=== PATIENT | female | born 1955 | race Caucasian/White ===

== ENCOUNTER 2019-05-06 15:23 | Outpatient (CLI) | payer MEDICARE ==
--- NOTE | 2019-05-07 15:12 | XRAY Report ---
Reason: PAIN IN RIGHT KNEE Procedure Date: 05/06/2019 Accession Number: [id number] / [id number] Procedure: XR - Knee 3 View RT CPT Code: Final Report FULL RESULT: EXAM: RIGHT KNEE RADIOGRAPHY EXAM DATE: 05/06/2019 03:44 PM. CLINICAL HISTORY: PAIN IN RIGHT KNEE. COMPARISON: None. TECHNIQUE: 3 views. FINDINGS: Bones: Normal. No fractures or bone lesions. Joints: Normal. No effusion. No subluxations. Soft Tissues: Normal. No soft tissue swelling. IMPRESSION: Normal right knee radiography. [facility]
--- NOTE | 2019-05-07 15:12 | XRAY Report ---
Reason: PAIN IN RIGHT KNEE AND LEG Procedure Date: 05/06/2019 Accession Number: [id number] / [id number] Procedure: XR - Tib/Fib RT CPT Code: Final Report FULL RESULT: EXAM: RIGHT TIBIA/FIBULA RADIOGRAPHY EXAM DATE: 05/06/2019 03:56 PM. CLINICAL HISTORY: PAIN IN RIGHT KNEE AND LEG. COMPARISON: KNEE 3 VIEW RT 05/06/2019 3:44 PM. TECHNIQUE: 2 views. FINDINGS: Bones: Normal. No fracture or bone lesion. Joints: The visualized knee and ankle joints are normal. No effusions. Soft Tissues: Normal. No soft tissue swelling. IMPRESSION: Normal right tibia/fibula radiography. [facility]
== END 2019-05-06 15:24 | disposition home or self-care (01) ==
LOC: DI 15:23
PROVIDERS: ATTEND Physician Assistant
DX: M25.561 Pain in right knee (principal); M79.604 Pain in right leg

== ENCOUNTER 2019-05-16 14:54 | Outpatient (CLI) | payer MEDICARE ==
--- NOTE | 2019-05-16 16:22 | Ultrasound Report ---
Reason: VAGINAL DISCHARGE Procedure Date: 05/16/2019 Accession Number: [id number] / [id number] Procedure: US - Pelvic w/Transvaginal CPT Code: Final Report FULL RESULT: EXAM: PELVIC ULTRASOUND EXAM DATE: 05/16/2019 03:45 PM. CLINICAL HISTORY: Vaginal discharge, postmenopausal. COMPARISON: None. TECHNIQUE: Realtime transabdominal pelvic scan performed to identify the uterus and adnexa and as an overview of other pelvic structures, followed by transvaginal scan to provide greater detail of the uterus and adnexa, with static image documentation. FINDINGS: Uterus: 5.9 x 2.2 x 3.2 cm, volume 22 cc. Anteverted position. Normal overall size and echotexture. Masses: None. Endometrium: 3 mm. Simple fluid present in the fundal measuring 2 mm in thickness. There is a cluster of calcifications about the lower uterine segment endometrium. No solid masses or hypervascularity evident Cervix: Unremarkable. Right Ovary: 1.5 x 1.5 x 2.3 cm, volume 2.8 cc. Normal echotexture and blood flow. Left Ovary: 1.5 x 1.1 x 2.2 cm, volume 1.9 cc. Normal echotexture and blood flow. Free Fluid: None. Other: None. IMPRESSION: 1. Moderate simple fluid in endometrial canal. 2. Endometrial versus subendometrial calcifications lower uterine segment of doubtful significance but possibly secondary to prior surgery, trauma or inflammatory process. 3. No endometrial mass or thickening evident. [facility]
== END 2019-05-16 14:55 | disposition home or self-care (01) ==
LOC: DI 14:54
PROVIDERS: ATTEND Physician Assistant
DX: N95.0 Postmenopausal bleeding (principal)
CPT/HCPCS: 76830; 76856

== ENCOUNTER 2019-08-21 10:40 | Outpatient (CLI) | payer MEDICARE ==
--- NOTE | 2019-08-21 11:34 | DEXA Report ---
Reason: SCREENING FOR OSTEOPOROSIS Procedure Date: 08/21/2019 Accession Number: [id number] / [id number] Procedure: DEX - Dexa Spine and/or Hip CPT Code: Final Report FULL RESULT: PROCEDURE: Dexa Spine and/or Hip INDICATIONS: SCREENING FOR OSTEOPOROSIS TECHNIQUE: Dual energy x-ray absorptiometry (DXA) was performed on a [employer] System. Regions measured are the AP Spine, femoral neck, and if needed forearm. COMPARISON: None. FINDINGS: Lumbar Spine: Bone Mineral Density 1.027 g/cm/cm,T score -1.3, Left Femoral Neck: Bone Mineral Density 0.937 g/cm/cm, T score -0.6, (T score greater or equal to -1.0: NORMAL) (T score from -1.1 to -2.4: OSTEOPENIA) (T score less than or equal to -2.5 to: OSTEOPOROSIS) Impression: Osteopenia Patients with diagnosis of osteoporosis or osteopenia should have regular bone mineral density assessment. For those eligible for Medicare, routine testing is allowed once every 2 years. Testing frequency can be increased for patients who have rapidly progressing disease or for those who are receiving medical therapy to restore bone mass. Reviewed by: Carroll Thompson MD on 08/21/2019 11:33 AM PDT Approved by: Carroll Thompson MD on 08/21/2019 11:33 AM PDT Station ID: [id number]
== END 2019-08-21 10:41 | disposition home or self-care (01) ==
LOC: DI 10:40
PROVIDERS: ATTEND Physician Assistant
DX: Z13.820 Encounter for screening for osteoporosis (principal); M85.88 Other specified disorders of bone density and structure, other site
CPT/HCPCS: 77080

== ENCOUNTER 2020-01-17 10:40 | Outpatient (CLI) | payer MEDICARE ==
--- NOTE | 2020-01-17 16:15 | XRAY Report ---
PROCEDURE: Shoulder 3 View RT INDICATIONS: PAIN OF RIGHT SHOULDER JOINT TECHNIQUE: 3 views of the shoulder were acquired. COMPARISON: None. FINDINGS: Bones: No fractures or dislocations. No suspicious bony lesions. Visualized ribs appear intact. M oderate acromioclavicular degenerative narrowing. Humeral head is mildly high riding. Soft tissues: No suspicious soft tissue calcifications. IMPRESSION: 1. High riding humeral head which can be seen with rotator cuff pathology. 2. Moderate acromioclavicular degenerative narrowing. Reviewed by: Esther Kumar MD on 01/17/2020 4:14 PM PST Approved by: Esther Kumar MD on 01/17/2020 4:14 PM PST Station ID: [id number]
== END 2020-01-17 10:41 | disposition home or self-care (01) ==
LOC: DI.S 10:40
PROVIDERS: ATTEND Physician Assistant
DX: M19.011 Primary osteoarthritis, right shoulder (principal)

== ENCOUNTER 2021-06-08 08:00 | Outpatient (CLI) | payer MEDICARE ==
[2021-06-08 21:38] LABS: BACTERIAL VAGINOSIS DNA NEGATIVE (NEGATIVE)
[2021-06-08 21:39] LABS: CANDIDA GLABRATA DNA NEGATIVE (NEGATIVE); CANDIDA GROUP DNA NEGATIVE (NEGATIVE); CANDIDA KRUSEI DNA NEGATIVE (NEGATIVE); TRICHOMONAS VAGINALIS DNA NEGATIVE (NEGATIVE)
[2021-06-08 23:27] LABS: CHLAMYDIA TRACHOMATIS DNA NEGATIVE (NEGATIVE); NEISSERIA GONORRHOEAE DNA NEGATIVE (NEGATIVE); TRICHOMONAS VAGINALIS DNA NEGATIVE (NEGATIVE)
== END 2021-06-08 23:59 ==
LOC: LAB.WC 08:00
PROVIDERS: ATTEND Obstetrics & Gynecology
DX: N89.8 Other specified noninflammatory disorders of vagina (principal)
CPT/HCPCS: 87491; 87591; 87661; 87801

== ENCOUNTER 2022-10-18 09:36 | Outpatient (CLI) | payer MEDICARE ==
[2022-10-18 15:09] LABS: BASOPHILS # (AUTO) 0.1 10^3/uL (0.0-0.1); BASOPHILS % (AUTO) 1.1 %; EOSINOPHILS # (AUTO) 0.2 10^3/uL (0.0-0.7); EOSINOPHILS % (AUTO) 2.9 %; HCT - HEMATOCRIT 43.8 % (37.0-47.0); HGB - HEMOGLOBIN 13.7 g/dL (12.0-16.0); LYMPHOCYTES # (AUTO) 1.7 10^3/uL (1.5-3.5); LYMPHOCYTES % (AUTO) 31.2 %; MEAN CORPUSCULAR HEMOGLOBIN 28.5 pg (27.0-31.0); MEAN CORPUSCULAR HGB CONC 31.3 g/dL (32.0-36.0); MEAN CORPUSCULAR VOLUME 91.3 fL (81.0-99.0); MEAN PLATELET VOLUME 9.8 fL (7.9-10.8); MONOCYTES # (AUTO) 0.7 10^3/uL (0.0-1.0); MONOCYTES % (AUTO) 11.8 %; NEUTROPHILS # (AUTO) 2.9 10^3/uL (1.5-6.6); NEUTROPHILS % (AUTO) 52.8 %; PLT - PLATELET COUNT 257 10^3/uL (130-450); WHITE BLOOD COUNT 5.5 x10^3/uL (4.8-10.8)
[2022-10-18 15:33] LABS: THYROID STIMULATING HORMONE 4.02 uIU/mL (0.34-5.60)
[2022-10-18 16:00] LABS: ALBUMIN 4.1 g/dL (3.2-5.5); ALBUMIN/GLOBULIN RATIO 1.5 (1.0-2.2); ALKALINE PHOSPHATASE 49 IU/L (42-121); ALT ALANINE AMINOTRANSFERASE 13 IU/L (10-60); AST ASPARTATE AMINOTRANSFERASE 18 IU/L (10-42); BILIRUBIN,TOTAL 0.8 mg/dL (0.2-1.0); BUN - BLOOD UREA NITROGEN 14 mg/dL (6-20); CALCIUM 9.1 mg/dL (8.5-10.3); CARBON DIOXIDE - CO2 31 mmol/L (21-32); CHLORIDE 103 mmol/L (101-111); CHOLESTEROL 238 mg/dL; CREATININE 0.7 mg/dL (0.6-1.3); GFR - MDRD 83 (>89); GLUCOSE 97 mg/dL (74-104); HDL CHOLESTEROL 80 mg/dL; LDL CHOLESTEROL,CALCULATED 142 mg/dL; LDL/HDL RATIO 1.8 (<4.4); POTASSIUM 4.6 mmol/L (3.5-4.5); SODIUM 135 mmol/L (135-145); TOTAL PROTEIN 6.9 g/dL (6.4-8.9); TRIGLYCERIDES 78 mg/dL (48-352); VLDL CHOLESTEROL 16 mg/dL
== END 2022-10-18 09:37 | disposition home or self-care (01) ==
LOC: LAB.S 09:36
PROVIDERS: ATTEND Registered Nurse
DX: Z79.899 Other long term (current) drug therapy (principal); Z13.9 Encounter for screening, unspecified
CPT/HCPCS: 36415; 80053; 80061; 83721; 84443; 85025

== ENCOUNTER 2023-10-13 08:24 | Outpatient (CLI) | payer MEDICARE ==
[2023-10-13 15:04] LABS: BASOPHILS # (AUTO) 0.1 10^3/uL (0.0-0.1); BASOPHILS % (AUTO) 1.4 %; EOSINOPHILS # (AUTO) 0.1 10^3/uL (0.0-0.7); EOSINOPHILS % (AUTO) 3.2 %; HCT - HEMATOCRIT 39.3 % (37.0-47.0); HGB - HEMOGLOBIN 12.6 g/dL (12.0-16.0); LYMPHOCYTES # (AUTO) 1.4 10^3/uL (1.5-3.5); LYMPHOCYTES % (AUTO) 31.8 %; MEAN CORPUSCULAR HEMOGLOBIN 28.3 pg (27.0-31.0); MEAN CORPUSCULAR HGB CONC 32.1 g/dL (32.0-36.0); MEAN CORPUSCULAR VOLUME 88.3 fL (81.0-99.0); MEAN PLATELET VOLUME 9.7 fL (7.9-10.8); MONOCYTES # (AUTO) 0.5 10^3/uL (0.0-1.0); MONOCYTES % (AUTO) 12.3 %; NEUTROPHILS # (AUTO) 2.3 10^3/uL (1.5-6.6); NEUTROPHILS % (AUTO) 51.1 %; PLT - PLATELET COUNT 271 10^3/uL (130-450); RED BLOOD COUNT 4.45 10^6/uL (4.20-5.40); RED CELL DISTRIBUTION WIDTH 12.9 % (12.0-15.0); WHITE BLOOD COUNT 4.4 x10^3/uL (4.8-10.8)
[2023-10-13 15:41] LABS: ALBUMIN 4.4 g/dL (3.2-5.5); ALBUMIN/GLOBULIN RATIO 1.8 (1.0-2.2); ALKALINE PHOSPHATASE 41 IU/L (42-121); ALT ALANINE AMINOTRANSFERASE 12 IU/L (10-60); AST ASPARTATE AMINOTRANSFERASE 17 IU/L (10-42); BUN - BLOOD UREA NITROGEN 13 mg/dL (6-20); CALCIUM 9.6 mg/dL (8.5-10.3); CARBON DIOXIDE - CO2 29 mmol/L (21-32); CHLORIDE 101 mmol/L (101-111); CHOL/HDL RATIO 2.9 (<4.4); CHOLESTEROL 277 mg/dL; CREATININE 0.6 mg/dL (0.6-1.3); GFR - MDRD 99 (>89); GLUCOSE 98 mg/dL (74-104); HDL CHOLESTEROL 94 mg/dL; LDL CHOLESTEROL,CALCULATED 169 mg/dL; LDL/HDL RATIO 1.8 (<4.4); POTASSIUM 4.3 mmol/L (3.5-4.5); SODIUM 135 mmol/L (135-145); TOTAL PROTEIN 6.8 g/dL (6.4-8.9); TRIGLYCERIDES 68 mg/dL; VLDL CHOLESTEROL 14 mg/dL
[2023-10-13 15:51] LABS: THYROID STIMULATING HORMONE 3.54 uIU/mL (0.34-5.60)
--- NOTE | 2023-10-14 10:38 | XRAY Report ---
PROCEDURE: Knee 4+V LT INDICATIONS: KNEE JOINT PAINFUL ON MOVEMENT TECHNIQUE: 4 views of the knee(s) were acquired. COMPARISON: Right knee radiograph dated 05/06/2019. FINDINGS: Bones: No fractures or dislocations. Mild to moderate tricompartmental osteoarthritis is seen most n otably in medial femoral tibial compartment. No suspicious bony lesions. Soft tissues: Small knee joint effusion. No suspicious soft tissue calcifications or masses. IMPRESSION: No acute bony abnormality. [id number] tricompartmental osteoarthritis and small joint effusion. Reviewed by: Naseem Tripathi MD on 10/14/2023 10:37 AM PDT Approved by: Naseem Tripathi MD on 10/14/2023 10:37 AM PDT Station ID: [id number]
== END 2023-10-13 08:25 | disposition home or self-care (01) ==
LOC: LAB.S 08:24 → DI.S 08:25
PROVIDERS: ATTEND Registered Nurse
DX: M17.12 Unilateral primary osteoarthritis, left knee (principal); M25.462 Effusion, left knee; Z79.899 Other long term (current) drug therapy; Z13.228 Encounter for screening for other metabolic disorders; Z13.220 Encounter for screening for lipoid disorders; Z13.29 Encounter for screening for other suspected endocrine disorder; Z13.0 Encounter for screening for diseases of the blood and blood-forming organs and certain disorders involving the immune mechanism
CPT/HCPCS: 36415; 80053; 80061; 81599; 83721; 84443; 85025